=== PATIENT | male | born 1995 | race American Indian/Alaskan Native ===

== ENCOUNTER 2020-12-29 06:10 | Emergency (ER) | payer OTHER ==
--- NOTE | 2020-12-29 07:49 | Emergency Department Report ---
ED General Adult HPI - General Chief complaint: Upper Respiratory Infection Stated complaint: CONGESTION Time Seen by Provider: 12/29/20 07:15 Source: patient Mode of arrival: Ambulatory Limitations: No Limitations - History of Present Illness Initial comments: 25-year-old male presents to the emergency room with complaint of nasal congestion watery eyes for 1 day he is using [id number]-[id number] allergy medicines and nasal spray with no improvement. Patient denies cough he denies fever he denies chest pain he denies shortness of breath. Patient also denies any past medical history he is well-appearing in no acute distress -: days(s) (1) Treatments Prior to Arrival: other (Nasal spray and [id number] allergy medicine) - Related Data Previous Rx's Medication Instructions Recorded Last Taken Type Fexofenadine/Pseudoephedrine 1 each PO DAILY #30 tab.er.24h 12/29/20 Unknown Rx [Kirsten-D 24 Hour Tablet] Fluticasone [Flonase] 1 spray NS QDAY #1 bottle 12/29/20 Unknown Rx Allergies Allergy/AdvReac Type Severity Reaction Status Date / Time No Known Allergies Allergy Unverified 12/29/20 06:32 ED Review of Systems ROS: Stated complaint: CONGESTION Other details as noted in HPI Comment: All other systems reviewed and negative Constitutional: no symptoms reported. denies: chills, fever, weakness Eyes: eye discharge, other (Red eyes with watery discharge bilaterally). denies: eye pain, vision change ENT: denies: ear pain, throat pain, dental pain Respiratory: denies: cough, shortness of breath, SOB with exertion, wheezing Cardiovascular: denies: chest pain, palpitations, edema Endocrine: denies: excessive sweating, intolerance to cold Gastrointestinal: denies: abdominal pain, nausea, vomiting, diarrhea, constipation, hematemesis Genitourinary: denies: urgency, dysuria Skin: denies: change in color Neurological: denies: headache, weakness, numbness ED Past Medical Hx - Past Medical History Previous Medical History?: No - Surgical History Past Surgical History?: No - Social History Smoking Status: Never Smoker Substance Use Type: None - Medications Home Medications: Home Medications Medication Instructions Recorded Confirmed Last Taken Type Fexofenadine/Pseudoephedrine 1 each PO DAILY #30 tab.er.24h 12/29/20 Unknown Rx [Kirsten-D 24 Hour Tablet] Fluticasone [Flonase] 1 spray NS QDAY #1 bottle 12/29/20 Unknown Rx ED Physical Exam - General Limitations: No Limitations General appearance: alert, in no apparent distress - Head Head exam: Present: normal inspection - Eye Eye exam: Present: conjunctival injection (Clear discharge bilaterally). Absent: periorbital swelling, periorbital tenderness - ENT ENT exam: Present: normal exam, normal orophraynx, mucous membranes moist, TM's normal bilaterally, other ( enlarged turbinates bilaterally) - Respiratory Respiratory exam: Present: normal lung sounds bilaterally. Absent: respiratory distress, wheezes - Cardiovascular Cardiovascular Exam: Present: regular rate, normal heart sounds - Neurological Exam Neurological exam: Present: alert, oriented X3 - Skin Skin exam: Present: warm, dry, intact, normal color ED Course Vital Signs 12/29/20 06:24 Temperature 97.5 F L Pulse Rate 73 Respiratory 18 Rate Blood Pressure 121/76 O2 Sat by Pulse 100 Oximetry - Reevaluation(s) Reevaluation #1: 12/29/20 07:47 Patient is well-appearing in no acute distress ED Medical Decision Making - Medical Decision Making This is a 25-year-old male with no past medical history he presents to the emergency room with 1 day complaint of nasal congestion watery red eyes. He is using [id number] allergy medicine and that nasal spray with no improvement. Patient denies fever he denies cough he denies chest pain he denies shortness of breath he has no loss of taste or smell no vomiting no diarrhea no other complaints. This is most likely seasonal allergies/ allergic rhinitis. Plan to treat with Kirsten and Flonase Critical Care Time: No Critical care attestation.: If time is entered above; I have spent that time in minutes in the direct care of this critically ill patient, excluding procedure time. ED Disposition Clinical Impression: Seasonal allergies Allergic rhinitis Qualifiers: Allergic rhinitis trigger: pollen Allergic rhinitis seasonality: seasonal Qualified Code(s): J30.1 - Allergic rhinitis due to pollen Disposition: DC-01 TO HOME OR SELFCARE Is pt being admited?: No Does the pt Need Aspirin: No Condition: Stable Instructions: Allergic Rhinitis, Adult, Allergies, Adult, [id number] Additional Instructions: Take prescription medication as directed. You are also you can also purchase Visine eyedrops available [id number] and use as directed by package insert. Follow-up with your primary care doctor return to the emergency room if you develop fever shortness of breath or any worsening symptoms Prescriptions: Fexofenadine/Pseudoephedrine [Kirsten-D 24 Hour Tablet] 1 each PO DAILY #30 tab.er.24h Fluticasone [Flonase] 1 spray NS QDAY #1 bottle Referrals: PRIMARY CARE, [Primary Care Provider] - 3-5 Days Time of Disposition: 07:49
== END 2020-12-29 08:02 | disposition home or self-care (01) ==
LOC: ED 06:10
CPT/HCPCS: 99282